=== PATIENT | female | born 1950 | race Caucasian/White ===

== ENCOUNTER 2024-12-21 12:57 | Emergency (ER) | payer OTHER, SELFPAY ==
--- NOTE | ~2024-12-21 | CT_ITS ---
EXAMINATION: CT diagnostic chest wo con DATE: 12/21/2024 16:21 INDICATION: Eval neoplasm vs pna TECHNIQUE: Computed tomography (CT) of the chest was performed without intravenous contrast. Addition al 3D reconstructions utilizing coronal maximum intensity projection (MIP) were performed. Automated exposure control and iterative reconstruction technique were employed. The dose-length product was 13 9.04 mGy-cm. COMPARISON: None FINDINGS: Moderate biapical pleural-parenchymal scarring. There is occlusion of the right middle lobe bronchus where it encounters a 3.6 x 3.0 x 3.1 cm masslike density at the perihilar right middle lobe with col lapse of the more peripheral right middle lobe. There is a cluster of a few satellite nodules at the inferior anterior segment of the right upper lobe along the opposite side the minor fissure from the perihilar mass. There is a 2.5 x 2.1 cm paramediastinal mass at the right apex. There is a 2.4 x 2.1 cm peripheral wedge-shaped part solid nodule with air bronchograms at the lateral left apex. 1.8 x 1. 3 similar part solid nodule at the inferior aspect of the posterior segment of the right upper lobe a butting the major fissure. There are a few additional smaller groundglass nodules in the right upper lobe and 1 in the right lower lobe. No pleural effusion. Heart size is normal. Atherosclerotic see ry artery calcifications. No pericardial effusion. Thoracic aorta is normal in caliber. There are sev eral mildly prominent but still normal-sized mediastinal lymph nodes. No pathologically enlarged thor acic lymphadenopathy. 1 cm cyst in the left hepatic lobe. Visualized upper abdomen is otherwise unrem arkable. Mild thoracic spondylosis. IMPRESSION: 1. 3.6 cm perihilar mass the central right middle lobe which obstructs the right middle lobar bronchi collapse of the more proximal right middle lobe. This concerning for primary bronchogenic carcinoma and would recommend bronchoscopy for further evaluation. 2. Additional 2.5 x 2.1 cm paramediastinal mass in the right upper lobe along some additional scatter ed smaller part solid and some solid nodules in both lungs for which differential would include malig josé miguel or pneumonia. Reviewed, dictated and finalized at location B. ORK ENGINEER IMPRESSION: 1. 3.6 cm perihilar mass the central right middle lobe which obstructs the righ t middle lobar bronchi collapse of the more proximal right middle lobe. This co ncerning for primary bronchogenic carcinoma and would recommend bronchoscopy fo r further evaluation. 2. Additional 2.5 x 2.1 cm paramediastinal mass in the right upper lobe along s ome additional scattered smaller part solid and some solid nodules in both lung s for which differential would include malignancy or pneumonia.
[2024-12-21 13:09] VITALS: BP 131/62; PULSE 78; RESP 20; TEMP 36.4; O2SAT 99
--- OUTSIDE RECORDS SUMMARY | 2024-12-21 13:37 | XMS_ITS | Clinical Summary ---
Author Organization [facility] Address [address] [place] [address]. [place] [address] [place] [address] Care Team Providers Care Pig Handler Name Role Phone Bola Rodriguez Primary Care Provider Allergies No known active allergies Medications No known medications Active Problems Problem Noted Date Diagnosed Date BMI 26.0-26.9,adult 07/19/2020 Colonoscopy refused 10/14/2019 Immunization refused 10/14/2019 Mammogram declined 10/14/2019 Female bladder prolapse 07/13/2016 Post-menopausal 04/06/2016 Resolved Problems Problem Noted Date Diagnosed Date Resolved Date Health maintenance examination 10/14/2019 08/05/2020 Family History Medical History Relation Comments Cancer Brother Cancer Mother Relation Status Comments Brother Mother Social History Tobacco Use Types Packs/Day Years Used Date Smoking Tobacco: Former Smokeless Tobacco: Never PHQ-2 Answer Date Recorded PHQ-2 Score - If the patient scores above 3, please move on to questions 3-9 0 10/15/2022 Comments Unknown Sex and Gender Information Value Date Recorded Sex Assigned at Not on file Legal Sex Female 9:19 PM CDT Gender Identity Not on file Sexual Orientation Not on file Last Filed Vital Signs Vital Sign Reading Time Taken Comments Blood Pressure 124/72 10/15/2022 9:19 AM COMBAT CONTROL MANAGER Pulse 55 10/15/2022 9:19 AM COMBAT CONTROL MANAGER Temperature - - Respiratory Rate - - Oxygen Saturation - - Inhaled Oxygen Concentration - - Weight 62.1 kg (137 lb) 10/15/2022 9:19 AM COMBAT CONTROL MANAGER Height 160 cm (5' 3 ) 10/15/2022 9:19 AM COMBAT CONTROL MANAGER Body Mass Index 24.27 10/15/2022 9:19 AM COMBAT CONTROL MANAGER Plan of Treatment Health Maintenance Due Date Last Done Comments Colorectal Cancer Screening Colonoscopy (10 Years) 1951 PHQ-2 (Physician [place]) 1963 Hepatitis C 1969 DTaP, Tdap and Td Vaccines ( 1 - Tdap) 1970 Mammogram Screening 1991 Zoster Vaccines (1 of 2) 2001 Dexa Scan (General) 2016 Pneumococcal Vaccine: 65+ Ye ars (1 of 1 - PCV) 2016 Annual Medicare Wellness Visit 10/19/2022 10/18/2021 COVID-19 Vaccine (1 - 2023-2 5 season) 2024 Influenza Adult (#1) 2024 PHQ-2 (Physician [place]) 11/25/2024 RSV Immunization or 60+ Years (1 - 1-dose 75+ series) 2026 Meningococcal B Vaccine Aged Out No l onger eligible based on patient's age to complete this topic Meningococcal Vaccine Aged Out No brittney francine eligible based on patient's age to complete this topic RSV Immunizations Under 20 Months Aged Out No longer eligible based on patient's age to complete this topic Insurance [employer] Care Teams Pig Handler Relationship Specialty Start Date End Date Bola Rodriguez DO PCP - General FAMILY PRACTICE 09/08/19
--- OUTSIDE RECORDS SUMMARY | 2024-12-21 13:37 | XMS_ITS | Clinical Summary ---
Author Organization [facility] Address [address] [place] [address] Care Team Providers Care Paste Mixing Supervisor Name Role Phone Sherrie Bacon MD Primary Care Provider Allergies No known active allergies Medications multivitamin,tx- minerals tablet Take by mouth. 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 11/16/2019 Nasal pterygium eye, bilateral 11/16/2019 Assessment & Plan (11/16/2019 10:38 AM CHASSIS DRIVER): Bilateral pterygium with brief tear break-up time (TBUT) with irritations primarily in the nasal corner of each eye Add artificial tears during the day and jaycob hs OU Resolved Problems Problem Noted Date Diagnosed Date Resolved Date Infiltrate of cornea 04/01/2018 024 Viral conjunctivitis, both eyes 03/12/2018 04/09/2024 Assessment & Plan (11/16/2019 10:07 AM CHASSIS DRIVER): Returns for f/u; Hx EKC, SEI both eyes (OU) occurred while on the Radhames 302 trial with 0.6 % Providone Iodine-Dexamethasone Vision stable, but c/o dry eye both eyes (OU) Increase ATs to QID OU and consider FML BID OU RTC 3 mos for IOP check Assessment & Plan (11/13/2018 10:45 AM CHASSIS DRIVER): Returns for f/u; Hx EKC, 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 No evident SEI or conj fibrosis both eyes (OU), reassurance only,but potential recurrence of SEI forewarned. Continue Refresh prn OU. Female bladder prolapse 07/13/201603/25 Surgical History Surgery Date Site/Laterality Comments HYSTERECTOMY for ovarian issues. Still has one ovary TONSILLECTOMY BLADDER SUSPENSION Medical History Medical History Date Comments Bladder prolapse, female, acquired Chickenpox Shingles Family History Medical History Relation Name Comments Prostate cancer Brother COPD Maternal Grandfather Diabetes Maternal Grandmother Arthritis Mother Brain cancer Mother brain tumor. Un sure of type. Breast cancer Neg Hx Colon cancer Neg Hx Ovarian cancer Neg Hx Uterine cancer Neg Hx Relation Name Status Comments Brother Father Maternal Grandfather Maternal Grandmother Mother Social History Tobacco Use Types Packs/Day Years Used Date Smoking Tobacco: Former Cigarettes 0.5 34 1 970 - 2004 Smokeless Tobacco: Never PHQ-2 Answer Date Recorded PHQ-2 Total Score (If total score is 3 or more points, staff should administer the PHQ-9) 0 04/09/2024 Comments Unknown Sex and Gender Information Value Date Recorded Sex Assigned at Not on file Legal Sex Female 2:15 PM CDT Gender Identity Not on file Sexual Orientation Not on file Obstetrics History Last Filed Vital Signs Vital Sign Reading Time Taken Comments Blood Pressure 128/72 04/09/2024 2:03 PM CDT Pulse 82 04/09/2024 2:03 PM CDT Temperature - - Respiratory Rate - - Oxygen Saturation - - Inhaled Oxygen Concentration - - Weight 57.7 kg (127 lb 3.2 oz) 04/09/2024 2:03 P M CDT Height 160 cm (5' 3 ) 04/09/2024 2:03 PM CDT Body Mass Index 22.53 04/09/2024 2:03 PM CDT Plan of Treatment Health Maintenance Due Date Last Done Comments Colon Cancer Screening-Colonoscopy 1951 DTaP/Tdap/Td Vaccine (1 - Tdap) 1962 Influenza Vaccine (#1) 2024 Breast Cancer Screening-Mammogram 01/14/2025 Postponed from 03/15 (Patient declined, but will receive in the future) Depression Screening 04/09/2025 04/09/2024 Fall Risk Assessment 04/09/2025 04/09/2024 Osteoporosis Screening-Bone Density Scan 04/09/2025 Postponed from 03/15 (Patient declined, but will receive in the future) Pneumococcal vaccine 65+ (1 of 1 - PCV) 04/09/2025 Postponed from 03/15 (Patient declined, but will receive in the future) Well Visit 65+ 04/09/2025 04/09/2024 Zoster Vaccine (1 of 2) 04/09/2025 Post poned from 2001 (Patient declined, but will receive in the future) Hepatitis C Screening Completed 05/18/2024 Hepatitis B Screening Discontinued Procedures Procedure Name Priority Date/Time Associated Diagnosis Comments HEPATITIS C ANTIBODY Routine 05/18/2024 8:07 AM CDT Encounter for hepatitis C screening test for low risk patient Laboratory examination ordered as part of a complete physical examination from Last 3 Months or Most Recently Relevant to Health Maintenance Results * Hepatitis C antibody Blood (05/18/2024 8:07 AM CDT) Hep C Ab Nonreactive Nonreactive Comment: Interpretive Data Nonreactive: Antibodies to HCV not detected. Does NOT exclude the possibility of recent exposure to HCV. Equivocal: Equivocal for HCV antibodies. Supplemental molecular testing will be automatically performed to determine infection status in accordance with current CDC screening recommendations. ?? Reactive: Positive for HCV antibodies. ??This may represent current or past HCV infection. Supplemental molecular testing will be automatically performed to determine ??current infection status in accordance with current CDC screening recommendations. Interpretive data was last revised on 2020. Blood 05/18/2024 8:07 AM CDT 05/18/2024 3:05 PM CDT Sherrie Bacon MD LAB MICROBIOLOGY - GEN ERAL ORDERABLES Final Result Performing Organization Address City/State/[place] [address] [facility] Department [place] [address] from Last 3 Months or Most Recently Relevant to Health Maintenance Insurance [facility] Member Subscriber Plan / Payer ( fective 2016-Present) Name:UZMA CHAVARRIA Relation to Subscriber:Self Name:Uzma Chavarria Payer ID:[id number] (NAIC) Type:MEDICARE RISK OTHER Address: [address] [place] [id number] Care Teams Paste Mixing Supervisor Relationship Specialty Start Date End Date Sherrie Bacon MD PCP - General Family Medicine 04/09/24
--- OUTSIDE RECORDS SUMMARY | 2024-12-21 13:37 | XMS_ITS | Referral Summary ---
Author Organization [facility] Address [address] [place] [address] Care Team Providers Care Can Handler Name Role Phone Sherrie Bacon MD Primary [...] 11/16/2019 Assessment & Plan (11/16/2019 10:38 AM CONSTRUCTION ECONOMIST): Bilateral pterygium with brief tear break-up time (TBUT) with irritations primarily in the nasal corner of each eye Add artificial tears during the day and jaycob hs OU Resolved Problems Problem Noted Date Diagnosed Date Resolved Date Infiltrate of cornea 04/01/2018 024 Viral conjunctivitis, both eyes 03/12/2018 04/09/2024 Assessment & Plan (11/16/2019 10:07 AM CONSTRUCTION ECONOMIST): Returns for f/u; Hx EKC, SEI both eyes (OU) occurred while on the Radhames 302 trial with 0.6 % Providone Iodine-Dexamethasone Vision stable, but c/o dry eye both eyes (OU) Increase ATs to QID OU and consider FML BID OU RTC 3 mos for IOP check Assessment & Plan (11/13/2018 10:45 AM CONSTRUCTION ECONOMIST): Returns for f/u; Hx EKC, SEI both [...] Refresh prn OU. Female bladder prolapse 07/13/201603/25 Social History Tobacco Use Types Packs/Day Years Used Date Smoking Tobacco: Former Cigarettes 0.5 34 1 0 - 2003 Smokeless Tobacco: Never PHQ-2 Answer Date Recorded [...] 04/09/2024 2:03 PM CDT Plan of Treatment Not on file Procedures Procedure Name Priority Date/Time Associated Diagnosis [...] MICROBIOLOGY - [place] [id number] [address] Department [place] [address] from Last 3 Months or Most Recently Relevant to Health Maintenance Insurance [employer] Care Teams Can Handler Relationship Specialty Start Date End Date Sherrie Bacon MD PCP - General Family Medicine 04/09/24
--- NOTE | 2024-12-21 14:42 | ED.SOB ---
HPI - SOB/Dyspnea General Chief Complaint: Recheck/Abnormal Lab/Rx <Madison Parisi APRN - Last Filed: 12/21/24 14:45> Stated Complaint: sent by Dr. Francis for possible lung mass <Madison Parisi APRN - Last Filed: 12/21/24 14:45> Time Seen by Provider: 12/21/24 14:30 <Madison Parisi APRN - Last Filed: 12/21/24 14:45> Focused HPI: Patient is a 74-year-old female who presents to the ER with the lingering cough x1 month. She reports she went to urgent care earlier today who advised her to come to the ER for a CT scan. Patient was told she had on the pneumonia, they also had concerns for other suspicious spots on her chest x-ray. She denies any wheezing, recent fevers, or productive coughs. Patient denies any recent sick contacts. She also denies any relevant medical history related to this ER visit. Patient denies chest pain, back pain, abdominal pain. GENERAL: Well-appearing, well-nourished, and in no acute distress. HEAD: Normocephalic, atraumatic. CHEST: Clear to auscultation. ?No respiratory distress. HEART: Regular rate and rhythm.? NEURO: ?Alert and oriented x3. Patient screened in triage and initial orders placed.? ?Additional care and disposition to be based upon?diagnostic testing and treatment. <Madison Parisi APRN - Last Filed: 12/21/24 14:45> Related Data Allergies/Adverse Reactions: Allergies Allergy/AdvReac Type Severity Reaction Status Date / Time No Known Allergies Allergy Verified 12/21/24 14:56 <Madison Parisi APRN - Last Filed: 12/21/24 14:45> Exam Narrative: APPEARANCE: No apparent distress. Head: atraumatic. EYES: EOMI, NOSE: Atraumatic NECK: Trachea midline RESPIRATORY: No increased rate of breathing, CTAB CARDIOVASCULAR: RRR, ABDOMINAL: Non-distended MUSCULOSKELETAl: No obvious deformities NEURO: Alert. Moving 4/4 extremities SKIN:: Warm, dry. Normal color PSYCHIATRIC: Normal affect <Sanjay Alejo MD - Last Filed: 12/21/24 16:58> Course Vital Signs Vital signs: Vital Signs Temperature 97.6 F 12/21/24 13:09 Pulse Rate 78 12/21/24 13:09 Respiratory Rate 20 12/21/24 13:09 Blood Pressure 131/62 12/21/24 13:09 Pulse Oximetry 99 12/21/24 13:09 Oxygen Delivery Room Air 12/21/24 13:09 Temperature 97.6 F 12/21/24 13:09 Pulse Rate 80 12/21/24 15:45 Respiratory Rate 16 12/21/24 15:45 Blood Pressure 121/63 12/21/24 15:45 Pulse Oximetry 95 12/21/24 15:45 Oxygen Delivery Room Air 12/21/24 13:09 <Madison Parisi, MYSQL DATABASE ADMINISTRATOR - Last Filed: 12/21/24 14:45> Vital Signs Temperature 97.6 F 12/21/24 13:09 Pulse Rate 78 12/21/24 13:09 Respiratory Rate 20 12/21/24 13:09 Blood Pressure 131/62 12/21/24 13:09 Pulse Oximetry 99 12/21/24 13:09 Oxygen Delivery Room Air 12/21/24 13:09 Temperature 97.6 F 12/21/24 13:09 Pulse Rate 80 12/21/24 15:45 Respiratory Rate 16 12/21/24 15:45 Blood Pressure 121/63 12/21/24 15:45 Pulse Oximetry 95 12/21/24 15:45 Oxygen Delivery Room Air 12/21/24 13:09 <Sanjay Alejo MD - Last Filed: 12/21/24 16:58> MDM - SOB/Dyspnea MDM Narrative Medical decision making narrative: -Course: 74-year-old female presenting for CT scan due to a suspicious mass on x-ray. CT has findings concerning for bronchogenic carcinoma. Patient is otherwise asymptomatic. She will follow up outpatient with Dr. Pritchett. <Sanjay Alejo MD - Last Filed: 12/21/24 16:58> Lab Data Result diagrams: 12/21/24 16:05 12/21/24 16:05 <Madison Parisi, MYSQL DATABASE ADMINISTRATOR - Last Filed: 12/21/24 14:45> Labs: Lab Results 12/21/24 Range/Units 16:05 WBC 8.9 (4.5-10.0) K/mm3 RBC 4.40 (4.2-5.4) M/mm3 Hgb 14.2 (12.0-15.0) g/dL Hct 42.0 (37.0-47.0) % MCV 95.5 (80-100) fl MCH 32.3 (26-34) pg MCHC 33.8 (32-36) g/dl RDW 12.1 (11.5-14.5) % Plt Count 273 (150-375) k/mm3 MPV 10.1 (7.4-10.4) fl Immature Gran % (Auto) 0.2 (0-0.5) % Neut % (Auto) 68.9 (45.5-73.1) % Lymph % (Auto) 15.9 L (18.3-44.2) % Hill % (Auto) 9.6 H (2.6-8.5) % Eos % (Auto) 4.5 H (0-4.4) % Baso % (Auto) 0.9 (0.2-1.2) % Lymph # (Auto) 1.41 (0.9-3.2) K/mm3 Hill # (Auto) 0.9 H (0.1-0.6) K/mm3 Eos # (Auto) 0.4 H (0-0.3) K/mm3 Baso # (Auto) 0.1 (0.0-0.1) K/mm3 Abs Immat Gran (auto) 0.02 (0.00-0.031) K/mm3 Absolute Neuts (auto) 6.1 (1.3-6.7) K/mm3 Absolute Nucleated RBC 0.000 (0.0-0.012) K/mm3 Nucleated RBC % 0.0 (0.0-0.2) % Sodium 137 (137-145) mmol/L Potassium 4.1 (3.4-5.0) mmol/L Chloride 102 (98-107) mmol/L Carbon Dioxide 25 (22-30) mmol/L Anion Gap 10 (4-12) mmol/L BUN 8 (7-17) mg/dL Creatinine 0.65 L (0.7-1.0) mg/dL Estim Creat Clear Calc 50 ml/min Estimated GFR > 60 (59 - ) Glucose 91 (65-110) mg/dL Calcium 9.1 (8.4-10.2) mg/dL Total Bilirubin 0.4 (0.2-1.3) mg/dL AST 30 (14-36) U/L ALT 14 (6-35) U/L Alkaline Phosphatase 90 (38-126) U/L Total Protein 7.0 (6.3-8.2) g/dL Albumin 4.2 (3.5-5.1) g/dL Influenza A (RT-PCR) Negative (Negative) Influenza B (RT-PCR) Negative (Negative) RSV (RT-PCR) Negative (Negative) SARS-CoV-2 RNA (RT-PCR) Negative (Negative) <Madison Parisi, MYSQL DATABASE ADMINISTRATOR - Last Filed: 12/21/24 14:45> Lab Results 12/21/24 Range/Units 16:05 WBC 8.9 (4.5-10.0) K/mm3 RBC 4.40 (4.2-5.4) M/mm3 Hgb 14.2 (12.0-15.0) g/dL Hct 42.0 (37.0-47.0) % MCV 95.5 (80-100) fl MCH 32.3 (26-34) pg MCHC 33.8 (32-36) g/dl RDW 12.1 (11.5-14.5) % Plt Count 273 (150-375) k/mm3 MPV 10.1 (7.4-10.4) fl Immature Gran % (Auto) 0.2 (0-0.5) % Neut % (Auto) 68.9 (45.5-73.1) % Lymph % (Auto) 15.9 L (18.3-44.2) % Hill % (Auto) 9.6 H (2.6-8.5) % Eos % (Auto) 4.5 H (0-4.4) % Baso % (Auto) 0.9 (0.2-1.2) % Lymph # (Auto) 1.41 (0.9-3.2) K/mm3 Hill # (Auto) 0.9 H (0.1-0.6) K/mm3 Eos # (Auto) 0.4 H (0-0.3) K/mm3 Baso # (Auto) 0.1 (0.0-0.1) K/mm3 Abs Immat Gran (auto) 0.02 (0.00-0.031) K/mm3 Absolute Neuts (auto) 6.1 (1.3-6.7) K/mm3 Absolute Nucleated RBC 0.000 (0.0-0.012) K/mm3 Nucleated RBC % 0.0 (0.0-0.2) % Sodium 137 (137-145) mmol/L Potassium 4.1 (3.4-5.0) mmol/L Chloride 102 (98-107) mmol/L Carbon Dioxide 25 (22-30) mmol/L Anion Gap 10 (4-12) mmol/L BUN 8 (7-17) mg/dL Creatinine 0.65 L (0.7-1.0) mg/dL Estim Creat Clear Calc 50 ml/min Estimated GFR > 60 (59 - ) Glucose 91 (65-110) mg/dL Calcium 9.1 (8.4-10.2) mg/dL Total Bilirubin 0.4 (0.2-1.3) mg/dL AST 30 (14-36) U/L ALT 14 (6-35) U/L Alkaline Phosphatase 90 (38-126) U/L Total Protein 7.0 (6.3-8.2) g/dL Albumin 4.2 (3.5-5.1) g/dL Influenza A (RT-PCR) Negative (Negative) Influenza B (RT-PCR) Negative (Negative) RSV (RT-PCR) Negative (Negative) SARS-CoV-2 RNA (RT-PCR) Negative (Negative) <Sanjay Alejo MD - Last Filed: 12/21/24 16:58> Discharge Plan Discharge Clinical Impression: BC (bronchogenic carcinoma) <Madison Parisi APRN - Last Filed: 12/21/24 14:45> Patient Disposition: Home, Self-Care <Madison Parisi APRN - Last Filed: 12/21/24 14:45> Condition: Stable <Madison Parisi APRN - Last Filed: 12/21/24 14:45> Instructions: Antibiotic Form, Lung Cancer (DC) <Madison Parisi APRN - Last Filed: 12/21/24 14:45> Additional Instructions: You were seen in the emergency department for a cough. Her CT has findings concerning for bronchogenic carcinoma. Please call Dr. Pritchett's clinic tomorrow morning to arrange outpatient follow-up for further treatment and evaluation. Return to ED if you develop chest pain difficulty breathing fevers or feel your condition is getting worse. <Madison Parisi APRN - Last Filed: 12/21/24 14:45> Patient Language: Honduran <Madison Parisi APRN - Last Filed: 12/21/24 14:45> Prescriptions: No Action doxycycline hyclate 100 mg capsule 100 mg PO BID 7 Days Qty: 14 0RF benzonatate 200 mg capsule 200 mg PO TID PRN (Reason: cough) Qty: 20 0RF <Madison Parisi APRN - Last Filed: 12/21/24 14:45> Follow-up/Referrals: Bobby Pritchett MD [Physician] - 2 Days (Lung Cancer) UNKNOWN,DOCTOR [Non-Staff] - <Madison Parisi APRN - Last Filed: 12/21/24 14:45>
[2024-12-21 14:53] VITALS: RESP 14; O2SAT 100
[2024-12-21 14:54] VITALS: BP 114/83; PULSE 67; RESP 16; O2SAT 100
[2024-12-21 14:56] VITALS: BP 114/83; PULSE 65; RESP 14; O2SAT 100
[2024-12-21 15:45] VITALS: BP 121/63; PULSE 80; RESP 16; O2SAT 95
[2024-12-21 16:13] LABS: Basophils Absolute Auto 0.1 K/mm3 (0.0-0.1); Basophils Percent Auto 0.9 % (0.2-1.2); Eosinophils Absolute Auto 0.4 K/mm3 (0-0.3); Eosinophils Percent Auto 4.5 % (0-4.4); Hemoglobin 14.2 g/dL (12.0-15.0); Immature Granulocyte Absolute 0.02 K/mm3 (0.00-0.031); Immature Granulocyte Percent A 0.2 % (0-0.5); Lymphocytes Absolute Auto 1.41 K/mm3 (0.9-3.2); Lymphocytes Percent Auto 15.9 % (18.3-44.2); Mean Corpuscular HGB Conc 33.8 g/dl (32-36); Mean Corpuscular Hemoglobin 32.3 pg (26-34); Mean Corpuscular Volume 95.5 fl (80-100); Mean Platelet Volume 10.1 fl (7.4-10.4); Monocytes Absolute Auto 0.9 K/mm3 (0.1-0.6); Monocytes Percent Auto 9.6 % (2.6-8.5); Neutrophils Absolute Auto 6.1 K/mm3 (1.3-6.7); Neutrophils Percent Auto 68.9 % (45.5-73.1); Platelet Count Result 273 k/mm3 (150-375); Red Cell Distribution Width 12.1 % (11.5-14.5); White Blood Count 8.9 K/mm3 (4.5-10.0)
[2024-12-21 16:23] LABS: Alanine Aminotransferase 14 U/L (6-35); Albumin Level 4.2 g/dL (3.5-5.1); Alkaline Phosphatase 90 U/L (38-126); Anion Gap 10 mmol/L (4-12); Aspartate Amino Transferase 30 U/L (14-36); Bilirubin,Total 0.4 mg/dL (0.2-1.3); Blood Urea Nitrogen 8 mg/dL (7-17); Calcium 9.1 mg/dL (8.4-10.2); Carbon Dioxide 25 mmol/L (22-30); Chloride 102 mmol/L (98-107); Estimated CRCL calculation 50 ml/min; Estimated Glomerular Filt Rate > 60; Glucose 91 mg/dL (65-110); Potassium 4.1 mmol/L (3.4-5.0); Sodium 137 mmol/L (137-145)
[2024-12-21 16:31] VITALS: BP 121/59; PULSE 72; RESP 15; O2SAT 97
--- OUTSIDE RECORDS SUMMARY | 2024-12-21 16:39 | XMS_ITS | Clinical Summary ---
Author Organization [facility] Address [address] [place] [address] Care Team Providers Care Credit Or Loans Officer Name Role Phone Sherrie Bacon MD Primary [...] 11/16/2019 Assessment & Plan (11/16/2019 10:38 AM LEGAL NURSE CONSULTANT): Bilateral pterygium with brief tear break-up time (TBUT) with irritations primarily in the nasal corner of each eye Add artificial tears during the day and jaycob hs OU Resolved Problems Problem Noted Date Diagnosed Date Resolved Date Infiltrate of cornea 04/01/2018 024 Viral conjunctivitis, both eyes 03/12/2018 04/09/2024 Assessment & Plan (11/16/2019 10:07 AM LEGAL NURSE CONSULTANT): Returns for f/u; Hx EKC, SEI both eyes (OU) occurred while on the Radhames 302 trial with 0.6 % Providone Iodine-Dexamethasone Vision stable, but c/o dry eye both eyes (OU) Increase ATs to QID OU and consider FML BID OU RTC 3 mos for IOP check Assessment & Plan (11/13/2018 10:45 AM LEGAL NURSE CONSULTANT): Returns for f/u; Hx EKC, SEI both [...] Final Result Performing Organization Address City/State/[place] [address] [facility] Department [place] [address] from Last 3 Months or Most Recently Relevant to Health Maintenance Insurance [facility] Member Subscriber Plan / Payer ( fective 2016-Present) Name:UZMA CHAVARRIA Relation to Subscriber:Self Name:Uzma Chavarria Payer ID:[id number] (NAIC) Type:MEDICARE RISK OTHER Address: [address] [place] [id number] Care Teams Credit Or Loans Officer Relationship Specialty Start Date End Date Sherrie Bacon MD PCP - General Family Medicine 04/09/24
--- OUTSIDE RECORDS SUMMARY | 2024-12-21 16:39 | XMS_ITS | Clinical Summary ---
Author Organization [facility] Address [address] [place] [address]. [place] [address] [place] [address] Care Team Providers Care Weight And Balance Control Agent Name Role Phone Bola Rodriguez Primary Care [...] Comments Blood Pressure 124/72 10/15/2022 9:19 AM CELLULAR BIOLOGIST Pulse 55 10/15/2022 9:19 AM CELLULAR BIOLOGIST Temperature - - Respiratory Rate - - Oxygen Saturation - - Inhaled Oxygen Concentration - - Weight 62.1 kg (137 lb) 10/15/2022 9:19 AM CELLULAR BIOLOGIST Height 160 cm (5' 3 ) 10/15/2022 9:19 AM CELLULAR BIOLOGIST Body Mass Index 24.27 10/15/2022 9:19 AM CELLULAR BIOLOGIST Plan of Treatment Health Maintenance Due Date Last Done Comments Colorectal Cancer Screening Colonoscopy (10 Years) 1951 PHQ-2 (Physician [place]) 1963 Hepatitis C 1969 DTaP, Tdap and Td Vaccines ( 1 - Tdap) 1970 Mammogram Screening 1991 Zoster Vaccines (1 of 2) 2001 Dexa Scan (General) 2016 Pneumococcal Vaccine: 65+ Ye ars (1 of 1 - PCV) 2016 Annual Medicare Wellness Visit 10/19/2022 10/18/2021 COVID-19 Vaccine (1 - 2023-2 5 season) 2024 Influenza Adult (#1) 2024 PHQ-2 (Physician [place]) 11/25/2024 RSV Immunization or 60+ Years (1 [...] patient's age to complete this topic Insurance [employer] Care Teams Weight And Balance Control Agent Relationship Specialty Start Date End Date Bola Rodriguez DO PCP - General FAMILY PRACTICE 09/08/19
--- OUTSIDE RECORDS SUMMARY | 2024-12-21 16:39 | XMS_ITS | Referral Summary ---
Author Organization [facility] Address [address] [place] [address] Care Team Providers Care Coach Cleaner Name Role Phone Sherrie Bacon MD Primary [...] 11/16/2019 Assessment & Plan (11/16/2019 10:38 AM ICE CREAM SERVER): Bilateral pterygium with brief tear break-up time (TBUT) with irritations primarily in the nasal corner of each eye Add artificial tears during the day and jaycob hs OU Resolved Problems Problem Noted Date Diagnosed Date Resolved Date Infiltrate of cornea 04/01/2018 024 Viral conjunctivitis, both eyes 03/12/2018 04/09/2024 Assessment & Plan (11/16/2019 10:07 AM ICE CREAM SERVER): Returns for f/u; Hx EKC, SEI both eyes (OU) occurred while on the Radhames 302 trial with 0.6 % Providone Iodine-Dexamethasone Vision stable, but c/o dry eye both eyes (OU) Increase ATs to QID OU and consider FML BID OU RTC 3 mos for IOP check Assessment & Plan (11/13/2018 10:45 AM ICE CREAM SERVER): Returns for f/u; Hx EKC, SEI both [...] GEN [place] [id number] [address] Department [place] [address] from Last 3 Months or Most Recently Relevant to Health Maintenance Insurance [facility] Care Teams Coach Cleaner Relationship Specialty Start Date End Date Sherrie Bacon MD PCP - General Family Medicine 04/09/24
[2024-12-21 16:47] LABS: Influenza A QL RT-PCR Negative (Negative); Influenza B QL RT-PCR Negative (Negative); RSV RNA, RT-PCR Negative (Negative); SARS-CoV-2 RNA PCR Negative (Negative)
== END 2024-12-21 17:04 | disposition home or self-care (01) ==
PROVIDERS: Emergency Provider Emergency Medicine; PCP Family Medicine
DX: C34.91 Malignant neoplasm of unspecified part of right bronchus or lung (principal); Z20.822 Contact with and (suspected) exposure to COVID-19
CPT/HCPCS: 36415; 71250; 80053; 85025; 87637; 99284

== ENCOUNTER 2025-01-21 10:45 | Outpatient (CLI) | payer OTHER, SELFPAY ==
[2025-01-21 11:08] LABS: Glucose Point of Care 79 mg/dl (65-105)
== END 2025-01-21 10:46 | disposition home or self-care (01) ==
PROVIDERS: PCP Family Medicine; Visit Provider Internal Medicine Hematology & Oncology
DX: C34.2 Malignant neoplasm of middle lobe, bronchus or lung (principal); N83.292 Other ovarian cyst, left side
CPT/HCPCS: 78815; A9552

== ENCOUNTER 2025-07-24 07:50 | Outpatient (CLI) | payer OTHER, SELFPAY ==
--- NOTE | ~2025-07-24 | XR_ITS ---
EXAM/ PROCEDURE: XR shoulder RT min 2V - 07/24/2025 8:06 CDT HISTORY: 75 years old Female with M25.511 - Pain in right shoulder X 1 WK, NO KNOWN INJURY COMPARISON: None available TECHNIQUE: Four view(s) FINDINGS/ IMPRESSION: There are no fractures or dislocations.Joint space narrowing, subchondral sclerosis, subchondral cyst formation and osteophyte formation, compatible with mild osteoarthritis. Tip of the Mediport catheter is at the cavoatrial junction. Right mid field consolidation. Reviewed, dictated and finalized at location N.
== END 2025-07-24 07:51 | disposition home or self-care (01) ==
PROVIDERS: PCP Family Medicine; Visit Provider Nurse Practitioner Family
DX: M25.511 Pain in right shoulder (principal); Z95.828 Presence of other vascular implants and grafts
CPT/HCPCS: 73030

== ENCOUNTER 2025-08-05 09:26 | Outpatient (CLI) | payer OTHER, SELFPAY ==
--- OUTSIDE RECORDS SUMMARY | 2025-08-05 10:09 | XMS_ITS | Encounter Summary ---
Author Organization [facility] Address [address] [place] [address] Care Team Providers Care Tower Excavator Operator Name Role Phone Bon Gonzalez MD Primary Care Provider [phone] Encounter Details Date Type Department Care Team (Late Contact Info) Description 08/05/2025 External Device Data ST[place] ABSTRACTION Provider, Abstract NO ADDRESS ON FILE Social History Tobacco Use Types Packs/Day Years Used Date Smoking Tobacco: Former Cigarettes Q uit: 1967 Smokeless Tobacco: Never Alcohol Use Standard Drinks/Week Comments Yes 0 (1 standard drink = 0.6 oz pur e alcohol) Occasionally Feeling Safe Answer Date Recorded Are you in a relationship wi th someone who hurts you emotionally and/or physically? 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 Gender Identity Not on file Sexual Orientation Not on file documented as of this encounter Plan of Treatment Upcoming Encounters Date Type Department Care Team (Late st Contact Info) Description 08/16/2025 9:30 AM CDT Office Visit [facility] Oncology and Hematology [facility] [address] [place] [address] Priya Simpson V., DO [address] [place] [address] 08/16/2025 10:30 AM CDT Appointment Chad [facility] 3rd Fl [address] [place] [address] Priya Simpson V., DO [address] [place] [address] 11/09/2025 8:40 AM GOLF TEACHER Appointment [facility] [address] [place] [address] Pee Matthews MD [address] [facility] [address] [place] [address] documented as of this encounter Visit Diagnoses Not on filedocumented in this encounter Care Teams Tower Excavator Operator Relationship Specialty Start Date End Date Bon Gonzalez MD [address] [place] [phone] PCP - General Family Practice 01/29/25 documented as of this encounter
--- OUTSIDE RECORDS SUMMARY | 2025-08-05 10:09 | XMS_ITS | Clinical Summary ---
Author Organization [facility] Address [address] [place] [address] Care Team Providers Care Director Software Name Role Phone Bobby Pritchett MD Unavailable [phone] Sherrie Bacon MD Primary Care Provider Allergies [...] 11/16/2019 Assessment & Plan (11/16/2019 10:38 AM BEATER AND PULPER FEEDER): Bilateral pterygium with brief tear break-up time (TBUT) with irritations primarily in the nasal corner of each eye Add artificial tears during the day and jaycob hs OU Resolved Problems Problem Noted Date Diagnosed Date Resolved Date Infiltrate of cornea 04/01/2018 024 Viral conjunctivitis, both eyes 03/12/2018 04/09/2024 Assessment & Plan (11/16/2019 10:07 AM BEATER AND PULPER FEEDER): Returns for f/u; Hx EKC, SEI both eyes (OU) occurred while on the Radhames 302 trial with 0.6 % Providone Iodine-Dexamethasone Vision stable, but c/o dry eye both eyes (OU) Increase ATs to QID OU and consider FML BID OU RTC 3 mos for IOP check Assessment & Plan (11/13/2018 10:45 AM BEATER AND PULPER FEEDER): Returns for f/u; Hx EKC, SEI both [...] P M CDT Height 160 cm (5' 3) 04/09/2024 2:03 PM CDT Body Mass Index 22.53 04/09/2024 2:03 PM CDT Plan of Treatment Health Maintenance Due Date Last Done Comments Breast Cancer Screening-Mammogram 1950 Colon Cancer Screening-Colonoscopy 1950 Osteoporosis Screening-Bone Density Scan 1950 DTaP/Tdap/Td Vaccine (1 - Tdap) 1962 Pneumococcal vaccine 65+ (1 of 1 - PCV) 2001 Zoster Vaccine (1 of 2) 2001 Depression Screening 04/09/2025 04/09/2024 Fall Risk Assessment 04/09/2025 04/09/2024 Well Visit 65+ 04/09/2025 04/09/2024 Influenza Vaccine (#1) 2025 Hepatitis C Screening Completed 05/18/2024 Hepatitis B [...] in accordance with current CDC screening recommendations. Reactive: Positive for HCV antibodies. This may represent current or past HCV infection. Supplemental molecular testing will be automatically performed to determine current infection status in accordance with current CDC screening recommendations. Interpretive data was last revised on 2020. Blood 05/18/2024 8:07 AM CDT 05/18/2024 3:05 PM CDT Sherrie Bacon MD LAB MICROBIOLOGY - GEN ERAL ORDERABLES Final Result [facility] [id number] [address] Department [place] [address] from Last 3 Months or Most Recently Relevant to Health Maintenance Insurance Care Teams Director Software Relationship Specialty Start Date End Date Sherrie Bacon MD [address] [place] [address] PCP - General Family Medicine 01/28/25 Bobby Pritchett MD [address] [place] [address] Referring Physician Hematology 01/28/25
--- OUTSIDE RECORDS SUMMARY | 2025-08-05 10:09 | XMS_ITS | Encounter Summary ---
Author Organization [facility] Address 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 Gender Identity Not on file Sexual Orientation Not on file documented as of this encounter Plan of Treatment Upcoming Encounters Date Type Department Care Team (Late st Contact Info) Description 08/16/2025 9:30 AM CDT Office Visit [facility] Oncology and Hematology [facility] [address] [place] [address] Priya Simpson V., DO [address] [place] [address] 08/16/2025 10:30 AM CDT Appointment Chad [facility] 3rd Fl [address] [place] [address] Priya Simpson V., DO [address] [place] [address] 11/09/2025 8:40 AM TEACHER PRESCHOOL Appointment [facility] [address] [place] [address] Pee Matthews MD [address] [facility] [address] [place] [address] documented as of this encounter Visit Diagnoses Not on filedocumented in this encounter Care Teams Hammersmith Helper Relationship Specialty Start Date End Date Bon Gonzalez MD [address] [place] [phone] PCP - General Family Practice 01/29/25 documented as of this encounter
--- OUTSIDE RECORDS SUMMARY | 2025-08-05 10:09 | XMS_ITS ---
Author Organization [facility] Address [address] [address] Care Team Providers Care Telecommunications Engineer Name Role Phone Bon Gonzalez MD Primary Care Provider [phone] Active Problems Problem Noted Date Diagnosed Date Malignant neoplasm of middle lobe of right lung 03/11/2025 Lung mass 02/03/2025 Current Treatment and Therapy Plans OP ONC LUNG (NSCLC)_DURVALUMAB_EVERY 28 DAYS* Plan Start Date:05/19/2025 Plan Provider:Priya Simpson DO Linked Problems Malignant neoplasm of middle lobe of right lung (CMS/HCC) Treatment Medications Current Day (Day 1 , Cycle 4 - Planned for 08/16/2025) Next Day (Day 1, Cycle 5 - Planned for 09/13/2025) durvalumab (IMFINZI) IVPB durvalumab (IM FINZI) 1,500 mg in sodium chloride 0.9 % 250 mL IVPB durvalumab (IMFINZI) 1,500 mg in sodium chloride 0.9 % 250 mL IVPB Past Treatment and Therapy Plans ONCOLOGY TREATMENT Plan Name Start Date Discontinue Date Treatment Medications Discontinue Reason Plan Provider Cycles OP ONC LUNG (NSCLC)_PACLI TAXEL_CARBOPL ATIN_EVERY 7 DAYS X 7 WITH CONCURRENT RADIATION 5 04/26/2025 CARBOplatin (PARAPLATIN) IVPBPACLitaxel (TAXOL) IVPB Other Priya Simpson DO 6 of 7 cycles started Lifetime Dose Tracking * Chemical Lifetime Dose Automatic Entry Manual Entr y Effective Dose 13.42 mSv 13.42 mSv 0 mSv Total DLP 517.83 DLP 517.83 DLP 0 DLP CTDIvol Max 14.45 mGy 14.45 mGy 0 mGy CTDIvol Min 14.45 mGy 14.45 mGy 0 mGy
--- OUTSIDE RECORDS SUMMARY | 2025-08-05 10:09 | XMS_ITS | Encounter Summary ---
Author Organization [facility] Address [address] [place] [address] Care Team Providers Care Pillowcase Maker Name Role Phone Bon Gonzalez MD Primary Care Provider [phone] Encounter Details Date Type Department Care Team [...] on file Legal Sex Female 1:58 PM UNLOADING CHECKER Gender Identity Not on file Sexual Orientation Not on file documented as of this encounter Plan of Treatment Upcoming Encounters Date Type Department Care Team (Late st Contact Info) Description 08/16/2025 9:30 AM CDT Office Visit [facility] Oncology and Hematology [facility] [address] [place] [address] Priya Simpson V., DO [address] [place] [address] 08/16/2025 10:30 AM CDT Appointment Chad Swann [facility] 3rd Fl [address] [place] [address] Priya Simpson V., DO [address] [place] [address] 11/09/2025 8:40 AM UNLOADING CHECKER Appointment [facility] Radiation Therapy [address] [place] [address] Pee Matthews MD [address] [facility] [address] [place] [address] documented as of this encounter Visit Diagnoses Not on filedocumented in this encounter Care Teams Pillowcase Maker Relationship Specialty Start Date End Date Bon Gonzalez MD [address] [place] [phone] PCP - General Family Practice 01/29/25 documented as of this encounter
--- OUTSIDE RECORDS SUMMARY | 2025-08-05 10:09 | XMS_ITS | Encounter Summary ---
Author Organization [facility] Address [address] [place] [address] Care Team Providers Care Construction Economist Name Role Phone Bon Gonzalez MD Primary Care Provider [phone] Encounter Details Date Type Department Care Team [...] on file Legal Sex Female 1:58 PM HUMAN RESOURCES DISTRICT MANAGER Gender Identity Not on file Sexual Orientation Not on file documented as of this encounter Plan of Treatment Upcoming Encounters Date Type Department Care Team (Late st Contact Info) Description 08/16/2025 9:30 AM CDT Office Visit [facility] Oncology and Hematology [facility] [address] [place] [address] Priya Simpson V., DO [address] [place] [address] 08/16/2025 10:30 AM CDT Appointment Chad Swann [facility] 3rd Fl [address] [place] [address] Priya Simpson V., DO [address] [place] [address] 11/09/2025 8:40 AM HUMAN RESOURCES DISTRICT MANAGER Appointment [facility] Rad[facility] Therapy [address] [place] [address] Pee Matthews MD [address] [facility] [address] [place] [address] documented as of this encounter Visit Diagnoses Not on filedocumented in this encounter Care Teams Construction Economist Relationship Specialty Start Date End Date Bon Gonzalez MD [address] [place] [phone] PCP - General Family Practice 01/29/25 documented as of this encounter
--- OUTSIDE RECORDS SUMMARY | 2025-08-05 10:09 | XMS_ITS | Clinical Summary ---
Author Organization [facility] Address [address] [place] [address] Care Team Providers Care Psych Coordinator Name Role Phone Bon Gonzalez MD Primary Care Provider [phone] Allergies No known active allergies Medications fluticasone propionate (FLONASE) 50 mcg/spray Hope, Suspension nasal inhaler Administer 1 Hope in each nostril every 12 hours. 5 Active multivitamin-m inerals (THERADEX-M) tablet Take 1 Tablet by mouth daily. Active prochlorperazi ne maleate (COMPAZINE) 10 mg tablet Take 1 Tablet (10 mg) by mouth every 6 hours as needed for Nausea/Emesis. 30 Tablet 6 5 Active famotidine (PEPCID) 20 mg tablet Take 1 Tablet (20 mg) by mouth 2 times daily. 60 Tablet 2 5 Active ondansetron (ZOFRAN) 8 mg Tablet Take 1 Tablet (8 mg) by mouth every 8 hours as needed for Nausea/Emesis. 30 Tablet 11 5 Active lidocaine-pril ocaine (EMLA) 2.5-2.5 % Cream Apply to affected area see administration instructions. 5 Gram 2 5 Active cyclobenzaprin e (FLEXERIL) 5 mg Tablet Take 1 Tablet (5 mg) by mouth 3 times daily as needed for Spasm. 20 Tablet 5 Active Active Problems Problem Noted Date Diagnosed Date Malignant neoplasm of middle lobe of right lung 03/11/2025 Lung mass 02/03/2025 Encounters Date Type Department Care Team Description 08/05/2025 External Device Data STL ABSTRACTION Provider, Abstract 08/05/2025 External Device Data STL ABSTRACTION Provider, Abstract 08/04/2025 External Device Data STL ABSTRACTION Provider, Abstract 08/04/2025 External Device Data STL ABSTRACTION Provider, Abstract 08/03/2025 External Device Data STL ABSTRACTION Provider, Abstract 08/03/2025 External Device Data STL ABSTRACTION Provider, Abstract 08/02/2025 External Device Data STL ABSTRACTION Provider, Abstract 08/02/2025 External Device Data STL ABSTRACTION Provider, Abstract 08/01/2025 External Device Data STL ABSTRACTION Provider, Abstract 08/01/2025 External Device Data STL ABSTRACTION Provider, Abstract 07/31/2025 External Device Data STL ABSTRACTION Provider, Abstract 07/31/2025 External Device Data STL ABSTRACTION Provider, Abstract 07/30/2025 External Device Data STL ABSTRACTION Provider, Abstract 07/30/2025 External Device Data STL ABSTRACTION Provider, Abstract 07/29/2025 External Device Data STL ABSTRACTION Provider, Abstract 07/29/2025 External Device Data STL ABSTRACTION Provider, Abstract 07/28/2025 External Device Data STL ABSTRACTION Provider, Abstract 07/28/2025 External Device Data STL ABSTRACTION Provider, Abstract 07/27/2025 7:48 AM CDT - 07/27/2025 11:59 PM CDT Hospital En[facility] [address] [place] [address] Carlos Carney MD Discharge Disposition: Home or Self Care 07/27/2025 External Device Data STL ABSTRACTION Provider, Abstract 07/27/2025 External Device Data STL ABSTRACTION Provider, Abstract 07/27/2025 External Device Data STL ABSTRACTION Provider, Abstract 07/26/2025 External Device Data STL ABSTRACTION Provider, Abstract 07/26/2025 External Device Data STL ABSTRACTION Provider, Abstract 07/25/2025 External Device Data STL ABSTRACTION Provider, Abstract 07/25/2025 External Device Data STL ABSTRACTION Provider, Abstract 07/24/2025 External Device Data STL ABSTRACTION Provider, Abstract 07/24/2025 External Device Data STL ABSTRACTION Provider, Abstract 07/23/2025 Telephone [facility] [address] [place] [address] Lissa Pinedo RN Radiation Pneumonitis 07/23/2025 External Device Data STL ABSTRACTION Provider, Abstract 07/23/2025 External Device Data STL ABSTRACTION Provider, Abstract 07/22/2025 External Device Data STL ABSTRACTION Provider, Abstract 07/22/2025 External Device Data STL ABSTRACTION Provider, Abstract 07/22/2025 External Device Data STL ABSTRACTION Provider, Abstract 07/21/2025 External Device Data STL ABSTRACTION Provider, Abstract 07/21/2025 External Device Data STL ABSTRACTION Provider, Abstract 07/21/2025 External Device Data STL ABSTRACTION Provider, Abstract 07/21/2025 External Device Data STL ABSTRACTION Provider, Abstract 07/21/2025 Telephone [facility] [address] [facility] [address] [place] [address] Priya Simpson V., DO pain; Spasms 07/21/2025 External Device Data STL ABSTRACTION Provider, Abstract 07/21/2025 External Device Data STL ABSTRACTION Provider, Abstract 07/20/2025 External Device Data STL ABSTRACTION Provider, Abstract 07/20/2025 External Device Data STL ABSTRACTION Provider, Abstract 07/19/2025 11:56 AM CDT - 07/19/2025 11:59 PM CDT Hospital Encounter [facility] 3rd In [address] [facility] [address] [facility] [place] [address] Priya Simpson V., DO Discharge Disposition: Home or Self Care 07/19/2025 11:15 AM CDT Office Visit [facility] [address] [facility] [address] [place] [address] Priya Simpson V., DO Malignant neoplasm of middle lobe of right lung (CMS/HCC) (Primary Dx); Muscle spasms of neck; Encounter for antineoplastic chemotherapy and immunotherapy; Radiation pneumonitis 07/19/2025 7:00 AM CDT - 07/19/2025 11:59 PM CDT Hospital Encounter [facility] 2nd Fl [address] [place] [address] Priya Simpson V., DO Discharge Disposition: Home or Self Care 07/19/2025 External Device Data STL ABSTRACTION Provider, Abstract 07/19/2025 External Device Data STL ABSTRACTION Provider, Abstract 07/18/2025 External Device Data STL ABSTRACTION Provider, Abstract 07/18/2025 External Device Data STL ABSTRACTION Provider, Abstract 07/17/2025 External Device Data STL ABSTRACTION Provider, Abstract 07/17/2025 External Device Data STL ABSTRACTION Provider, Abstract 07/16/2025 External Device Data STL ABSTRACTION Provider, Abstract 07/16/2025 External Device Data STL ABSTRACTION Provider, Abstract 07/15/2025 9:25 AM CDT - 07/15/2025 11:59 PM CDT Hospital Encounter [facility] CT Scan [address] [place] [address] Linn Calhoun, SUMA Discharge Disposition: Home or Self Care 07/15/2025 External Device Data STL ABSTRACTION Provider, Abstract 07/15/2025 External Device Data STL ABSTRACTION Provider, Abstract 07/14/2025 External Device Data STL ABSTRACTION Provider, Abstract 07/14/2025 External Device Data STL ABSTRACTION Provider, Abstract 07/14/2025 External Device Data STL ABSTRACTION Provider, Abstract 07/13/2025 External Device Data STL ABSTRACTION Provider, Abstract 07/13/2025 [facility] Oncology and Hematology [facility] [address] [facility] [place] [address] Priya Simpson V., DO pain 07/13/2025 External Device Data STL ABSTRACTION Provider, Abstract 07/12/2025 External Device Data STL ABSTRACTION Provider, Abstract 07/11/2025 External Device Data STL ABSTRACTION Provider, Abstract 07/10/2025 External Device Data STL ABSTRACTION Provider, Abstract 07/09/2025 External Device Data STL ABSTRACTION Provider, Abstract 07/08/2025 External Device Data STL ABSTRACTION Provider, Abstract 07/08/2025 External Device Data STL ABSTRACTION Provider, Abstract 07/08/2025 External Device Data STL ABSTRACTION Provider, Abstract 07/08/2025 External Device Data STL ABSTRACTION Provider, Abstract 07/07/2025 External Device Data STL ABSTRACTION Provider, Abstract 07/07/2025 External Device Data STL ABSTRACTION Provider, Abstract 07/07/2025 External Device Data STL ABSTRACTION Provider, Abstract 07/07/2025 External Device Data STL ABSTRACTION Provider, Abstract 07/07/2025 External Device Data STL ABSTRACTION Provider, Abstract 07/07/2025 External Device Data STL ABSTRACTION Provider, Abstract 07/07/2025 External Device Data STL ABSTRACTION Provider, Abstract 07/07/2025 External Device Data STL ABSTRACTION Provider, Abstract 07/06/2025 External Device Data STL ABSTRACTION Provider, Abstract 07/06/2025 External Device Data STL ABSTRACTION Provider, Abstract 07/05/2025 External Device Data STL ABSTRACTION Provider, Abstract 07/05/2025 External Device Data STL ABSTRACTION Provider, Abstract 07/05/2025 External Device Data STL ABSTRACTION Provider, Abstract 07/05/2025 External Device Data STL ABSTRACTION Provider, Abstract 07/05/2025 External Device Data STL ABSTRACTION Provider, Abstract 07/05/2025 External Device Data STL ABSTRACTION Provider, Abstract 07/05/2025 External Device Data STL ABSTRACTION Provider, Abstract 07/05/2025 External Device Data STL ABSTRACTION Provider, Abstract 07/05/2025 External Device Data STL ABSTRACTION Provider, Abstract 07/05/2025 External Device Data STL ABSTRACTION Provider, Abstract 07/05/2025 External Device Data STL ABSTRACTION Provider, Abstract 07/05/2025 External Device Data STL ABSTRACTION Provider, Abstract 07/05/2025 External Device Data STL ABSTRACTION Provider, Abstract 07/05/2025 External Device Data STL ABSTRACTION Provider, Abstract 07/05/2025 External Device Data STL ABSTRACTION Provider, Abstract 07/05/2025 External Device Data STL ABSTRACTION Provider, Abstract 07/05/2025 External Device Data STL ABSTRACTION Provider, Abstract 07/05/2025 External Device Data STL ABSTRACTION Provider, Abstract 07/05/2025 External Device Data STL ABSTRACTION Provider, Abstract 07/05/2025 External Device Data STL ABSTRACTION Provider, Abstract 07/05/2025 External Device Data STL ABSTRACTION Provider, Abstract 07/04/2025 External Device Data STL ABSTRACTION Provider, Abstract 07/03/2025 External Device Data STL ABSTRACTION Provider, Abstract 07/02/2025 External Device Data STL ABSTRACTION Provider, Abstract 07/01/2025 External Device Data STL ABSTRACTION Provider, Abstract 06/30/2025 External Device Data STL ABSTRACTION Provider, Abstract 06/30/2025 External Device Data STL ABSTRACTION Provider, Abstract 06/29/2025 External Device Data STL ABSTRACTION Provider, Abstract 06/28/2025 External Device Data STL ABSTRACTION Provider, Abstract 06/27/2025 External Device Data STL ABSTRACTION Provider, Abstract 06/26/2025 External Device Data STL ABSTRACTION Provider, Abstract 06/25/2025 External Device Data STL ABSTRACTION Provider, Abstract 06/24/2025 External Device Data STL ABSTRACTION Provider, Abstract 06/23/2025 External Device Data STL ABSTRACTION Provider, Abstract 06/22/2025 External Device Data STL ABSTRACTION Provider, Abstract 06/21/2025 10:30 AM CDT - 06/21/2025 11:59 PM CDT Hospital Encounter [facility] 3rd In [address] [address] [place] [address] Priya Simpson V., DO Discharge Disposition: Home or Self Care 06/21/2025 10:00 AM CDT Office Visit [facility] Oncology and Hematology [facility] [address] [facility] [place] [address] Priya Simpson V., Linn Cordova PA-C Malignant neoplasm of middle lobe of right lung (CMS/HCC) (Primary Dx); Lung mass; Treatment plan provided 06/21/2025 9:41 AM CDT - 06/21/2025 11:59 PM CDT Hospital Encounter [facility] 2nd In [address] [place] [place] [address] Priya Simpson V., DO Discharge Disposition: Home or Self Care 06/21/2025 External Device Data STL ABSTRACTION Provider, Abstract 06/20/2025 External Device Data STL ABSTRACTION Provider, Abstract 06/19/2025 External Device Data STL ABSTRACTION Provider, Abstract 06/18/2025 External Device Data STL ABSTRACTION Provider, Abstract 06/17/2025 External Device Data STL ABSTRACTION Provider, Abstract 06/16/2025 External Device Data STL ABSTRACTION Provider, Abstract 06/15/2025 External Device Data STL ABSTRACTION Provider, Abstract 06/14/2025 External Device Data STL ABSTRACTION Provider, Abstract 06/13/2025 External Device Data STL ABSTRACTION Provider, Abstract 06/12/2025 External Device Data STL ABSTRACTION Provider, Abstract 06/11/2025 External Device Data STL ABSTRACTION Provider, Abstract 06/10/2025 External Device Data STL ABSTRACTION Provider, Abstract 06/09/2025 External Device Data STL ABSTRACTION Provider, Abstract 06/09/2025 External Device Data STL ABSTRACTION Provider, Abstract 06/08/2025 External Device Data STL ABSTRACTION Provider, Abstract 06/08/2025 External Device Data STL ABSTRACTION Provider, Abstract 06/07/2025 External Device Data STL ABSTRACTION Provider, Abstract 06/06/2025 External Device Data STL ABSTRACTION Provider, Abstract 06/05/2025 External Device Data STL ABSTRACTION Provider, Abstract 06/04/2025 External Device Data STL ABSTRACTION Provider, Abstract 06/03/2025 External Device Data STL ABSTRACTION Provider, Abstract 06/02/2025 External Device Data STL ABSTRACTION Provider, Abstract 06/01/2025 External Device Data STL ABSTRACTION Provider, Abstract 05/31/2025 External Device Data STL ABSTRACTION Provider, Abstract 05/30/2025 External Device Data STL ABSTRACTION Provider, Abstract 05/29/2025 External Device Data STL ABSTRACTION Provider, Abstract 05/28/2025 External Device Data STL ABSTRACTION Provider, Abstract 05/27/2025 Chart Note [facility] Patient Navigation [address] [place] [address] Missy Yee, [place] Nurse Navigation (Follow up) 05/27/2025 External Device Data STL ABSTRACTION Provider, Abstract 05/26/2025 External Device Data STL ABSTRACTION Provider, Abstract 05/25/2025 Telephone [facility] Oncology and Hematology - [facility] [address] [facility] [address] [place] [address] Priya Simspon V., DO status 05/25/2025 External Device Data STL ABSTRACTION Provider, Abstract 05/24/2025 10:30 AM CDT - 05/24/2025 11:59 PM CDT Hospital En[facility] [address] [facility] [address] [place] [address] Priya Simpson V., DO Discharge Disposition: Home or Self Care 05/24/2025 10:15 AM CDT - 05/24/2025 11:59 PM CDT Hospital Encounter [facility] [address] [place] [address] Priya Simpson V., DO Discharge Disposition: Home or Self Care 05/24/2025 10:00 AM CDT Office Visit [facility] Oncology and Hematology [facility] [address] [address] [place] [address] Priya Simpson V., DO Malignant neoplasm of middle lobe of right lung (CMS/HCC) 05/24/2025 External Device Data STL ABSTRACTION Provider, Abstract 05/23/2025 External Device Data STL ABSTRACTION Provider, Abstract 05/22/2025 External Device Data STL ABSTRACTION Provider, Abstract 05/21/2025 External Device Data STL ABSTRACTION Provider, Abstract 05/20/2025 External Device Data STL ABSTRACTION Provider, Abstract 05/19/2025 External Device Data STL ABSTRACTION Provider, Abstract 05/18/2025 External Device Data STL ABSTRACTION Provider, Abstract 05/18/2025 External Device Data STL ABSTRACTION Provider, Abstract 05/17/2025 8:42 AM CDT - 05/17/2025 11:59 PM CDT Hospital Encounter [facility] CT Scan [address] [place] [address] Linn Calhoun PA-C Discharge Disposition: Home or Self Care 05/17/2025 External Device Data STL ABSTRACTION Provider, Abstract 05/16/2025 External Device Data STL ABSTRACTION Provider, Abstract 05/15/2025 External Device Data STL ABSTRACTION Provider, Abstract 05/14/2025 External Device Data STL ABSTRACTION Provider, Abstract 05/13/2025 External Device Data STL ABSTRACTION Provider, Abstract 05/12/2025 External Device Data STL ABSTRACTION Provider, Abstract 05/11/2025 External Device Data STL ABSTRACTION Provider, Abstract 05/10/2025 External Device Data STL ABSTRACTION Provider, Abstract 05/09/2025 External Device Data STL ABSTRACTION Provider, Abstract 05/08/2025 External Device Data STL ABSTRACTION Provider, Abstract 05/07/2025 External Device Data STL ABSTRACTION Provider, Abstract 05/06/2025 External Device Data STL ABSTRACTION Provider, Abstract 05/05/2025 External Device Data STL ABSTRACTION Provider, Abstract from Last 3 Months Family History Medical History Relation Name Comments No Known Problems Brother Diabetes Child 1 No Known Problems Child 2 No Known Problems Child 3 No Known Problems Father Brain Aneurysm Mother No Known Problems Sister 1 No Known Problems Sister 2 Relation Name Status Comments Brother Child 1 Alive Child 2 Alive Child 3 Alive Father Mother Sister 1 Alive Sister 2 Alive Social History Tobacco Use Types Packs/Day Years Used Date Smoking Tobacco: Former Cigarettes Q uit: 1967 Smokeless Tobacco: Never Tobacco Cessation:Counseling Given: Not Answered Alcohol Use Standard Drinks/Week Comments Yes 0 (1 standard drink = 0.6 oz pur e alcohol) Occasionally Feeling Safe Answer Date Recorded Are you in a relationship wi th someone who hurts you emotionally and/or physically? 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 Gender Identity Not on file Sexual Orientation Not on file Last Filed Vital Signs Vital Sign Reading Time Taken Comments Blood Pressure 136/80 07/27/2025 8:17 AM CDT Pulse 83 07/27/2025 8:17 AM CDT Temperature 35.9 C (96.7 F) 07/27/2025 8:17 AM CDT Respiratory Rate 18 06/21/2025 10:26 AM CDT Oxygen Saturation 96% 07/27/2025 8:17 AM CDT Inhaled Oxygen Concentration - - Weight 61.2 kg (135 lb) 07/27/2025 8:16 AM CDT Height 154.9 cm (5' 1) 07/27/2025 8:16 AM CDT Body Mass Index 25.51 07/27/2025 8:16 AM CDT Plan of Treatment Upcoming Encounters Date Type Department Care Team (Late st Contact Info) Description 08/16/2025 9:30 AM CDT Office Visit [facility] Oncology and Hematology [facility] [address] [place] [address] Priya Simpson DO [address] [place] [address] 08/16/2025 10:30 AM CDT Appointment [facility] 3rd Fl [address] [place] [address] Roni Simpsongiles Webb., DO [address] [place] [address] 11/09/2025 8:40 AM HEAD COACH Appointment [facility] Radiation Therapy [address] [place] [address] Pee Matthews MD [address] [facility] [id number] [place] [address] Health Maintenance Due Date Last Done Comments DTAP/TDAP/TD VACCINES (1 - Tdap) 1970 PNEUMOCOCCAL VACCINE 50+ YEARS (1 of 2 - PCV) 03/15/19 70 ZOSTER VACCINE (1 of 2) 1970 BREAST CANCER SCREENING 1991 COLORECTAL SCREENING 1996 Colorectal Cancer Screening 1996 FIT-DNA Q 3 years 1996 FIT/FOBT Q 1 year 1996 Flex Sig/CT Colonography Q 5 years 1996 RSV VACCINE (60+ or ) (1 - Risk 60-74 years 1-dose series) 2011 OSTEOPOROSIS SCREENING 2016 INFLUENZA VACCINE (#1) 2025 Medical Devices Implanted Type Area Agricultural Research Technologist Device Identifier Shelf Expiration Date Model / Serial / Lot Port-03/19/2025 Implanted:Qty: 1 on 03/19/2025 by Garry Dixon MD Right: Chest Wall CR BARD- ACCESS SYS 01/22/2026 [id number] / / [id number] Description:ISP port implant ed on 03/19/[address] Dixon Procedures Procedure Name Priority Date/Time Associated Diagnosis Comments COMPREHENSIVE METABOLIC PANEL Stat 07/19/2025 11:22 AM CDT Malignant neoplasm of middle lobe of right lung (CMS/HCC) CBC WITH DIFFERENTIAL Stat 07/19/2025 11:22 AM CDT Malignant neoplasm of middle lobe of right lung (CMS/HCC) TSH REFLEXIVE Routine 07/19/2025 11:22 AM CDT Malignant neoplasm of middle lobe of right lung (CMS/HCC) CT CHEST W CONTRAST Routine 07/15/2025 1 0:11 AM CDT Malignant neoplasm of middle lobe of right lung (CMS/HCC) Lung mass Treatment plan provided COMPREHENSIVE METABOLIC PANEL Stat 06/21/2025 10:13 AM CDT Malignant neoplasm of middle lobe of right lung (CMS/HCC) CBC WITH DIFFERENTIAL Stat 06/21/2025 10:13 AM CDT Malignant neoplasm of middle lobe of right lung (CMS/HCC) TSH REFLEXIVE Routine 06/21/2025 10:13 AM CDT Malignant neoplasm of middle lobe of right lung (CMS/HCC) COMPREHENSIVE METABOLIC PANEL Stat 05/24/2025 10:32 AM CDT Malignant neoplasm of middle lobe of right lung (CMS/HCC) CBC WITH DIFFERENTIAL Stat 05/24/2025 10:32 AM CDT Malignant neoplasm of middle lobe of right lung (CMS/HCC) TSH REFLEXIVE Routine 05/24/2025 10:32 AM CDT Malignant neoplasm of middle lobe of right lung (CMS/HCC) CT CHEST WO CONTRAST Routine 05/17/2025 9:00 AM CDT Malignant neoplasm of middle lobe of right lung (CMS/HCC) Encounter for chemotherapy management from Last 3 Months Results * (ABNORMAL) TSH REFLEXIVE (07/19/2025 11:22 AM CDT) Only the most recent of3 resultswithin the time period is included. TSH 0.11(L) 0.40 - 4.50 mIU/L [facility] T4 FREE 1.4 0.8 - 1.8 ng/dL [facility] Comment: [facility] [address] [address] [place] [address] Kal Wiley Blood 07/19/2025 11:2 2 AM CDT 07/19/2025 12:54 PM CDT Priya Simpson DO CHEMISTRY ORDERABLES Final Result [facility] [phone] [place] [address] [address] [place] [address] * (ABNORMAL) CBC WITH DIFFERENTIAL (07/19/2025 11:22 AM CDT) Only the most recent of3 resultswithin the time period is included. WBC 10.6(H) 4.0 - 9.8 K/uL 07/19/2025 11:37 AM CDT [facility] RBC 3.91 3.90 - 4.90 M/uL 07/19/2025 11:37 AM CDT [facility] HEMOGLOBIN 12.6 11.8 - 14.8 g/dL 07/19/2025 11:37 AM CDT [facility] HEMATOCRIT 37.0 35.5 - 44.0 % 07/19/2025 11:37 AM CDT [facility] MCV 94.6 82.0 - 99.0 fL 07/19/2025 11:37 AM CDT [facility] MCH 32.2 27.2 - 32.6 pg 07/19/2025 11:37 AM CDT [facility] MCHC 34.1 31.5 - 35.5 g/dL 07/19/2025 11:37 AM CDT [facility] RDW 11.7 11.5 - 14.5 % 07/19/2025 11:37 AM CDT [facility] RDW-STDEV 40.0 37.1 - 48.7 fL 07/19/2025 11:37 AM CDT [facility] - . [facility] PLATELETS 299 140 - 350 K/uL 07/19/2025 11:37 AM T [facility] - . [facility] MPV 9.3 9.3 - 12.4 fL 07/19/2025 11:37 AM T [facility] - . [facility] NEUTROPHILS 80 % 07/19/2025 11:37 AM T [facility] - . [place] LYMPHOCYTES 7 % 07/19/2025 11:37 AM CDT [employer] [facility] - . [place] MONOCYTES 9 % 07/19/2025 11:37 AM CDT [facility] [place] EOSINOPHILS 3 % 07/19/2025 11:37 AM T [facility] - . [place] BASOPHILS 1 % 07/19/2025 11:37 AM [facility]ORATORY SERVICES - . [facility] IMMATURE GRANULOCYTES 1 % 07/19/2025 11:37 AM [facility]ORATORY SERVICES - . [place] Comment:IG (Immature Granulo cyte) count includes Metamyelocytes, Myelocytes, and Promyelocytes NEUTROPHIL ABSOLUTE 8.51(H) 1.90 - 7.00 K/uL 07/19/2025 11:37 AM T [facility] - . [facility] LYMPHOCYTE ABSOLUTE 0.72 0.70 - 4.50 K/uL 07/19/2025 11:37 AM [facility]ORATORY SERVICES - [facility] MONOCYTE ABSOLUTE 1.00 0.10 - 1.30 K/uL 07/19/2025 11:37 AM [facility] - . [facility] EOSINOPHIL ABSOLUTE 0.26 0.00 - 0.70 K/uL 07/19/2025 11:37 AM [facility] - . [facility] BASOPHILS ABSOLUTE 0.07 0.00 - 0.20 K/uL 07/19/2025 11:37 AM [facility] - . [facility] IMMATURE GRANULOCYTES ABSOLUTE 0.05(H) 0.00 - 0.03 K/uL 07/19/2025 11:37 AM [facility] - . [facility] Blood Collection / Unknown 07/19/2025 11:22 AM CDT 07/19/2025 11:29 AM CDT us Priya Simpson DO HEMATOLOGY ORDERABLES Final Result [facility] RYANNE# [id number] [address] [place] [address] * (ABNORMAL) COMPREHENSIVE METABOLIC PANEL (07/19/2025 11:22 AM CDT) Only the most recent of3 resultswithin the time period is included. [facility] SODIUM 137 136 - 145 mmol/L 07/19/2025 12:14 PM CDT [facility] - [facility] POTASSIUM 4.2 3.5 - 5.0 mmol/L 07/19/2025 12:14 PM CDT [facility] CHLORIDE 100 98 - 107 mmol/L 07/19/2025 12:14 PM CDT [facility] CO2 26 22 - 29 mmol/L 07/19/2025 12:14 PM CDT [facility] CALCIUM 9.9 8.6 - 10.2 mg/dL 07/19/2025 12:14 PM CDT [facility] - . [facility] BUN 10 8 - 23 mg/dL 07/19/2025 12:14 PM T [facility] CREATININE 0.60 0.51 - 0.95 mg/dL 07/19/2025 12:14 PM T [facility] Comment:The GFR result is no t clinically significant on patients <18 or >70 years of age. GLUCOSE 98 74 - 99 mg/dL 07/19/2025 12:14 PM CDT [facility] - . [facility] TOTAL PROTEIN 6.6(L) 6.7 - 8.6 g/dL 07/19/2025 12:14 PM CD[address] [facility] ALBUMIN 3.9 3.5 - 5.2 g/dL 07/19/2025 12:14 PM CD[address] [facility] BILIRUBIN TOTAL 0.2 0.0 - 1.1 mg/dL 07/19/2025 12:14 PM [facility] ALKALINE PHOSPHATASE 94 35 - 104 U/L 07/19/2025 12:14 PM [facility] AST 26 <33 U/L 07/19/2025 12:14 PM [facility] ALT 15 <34 U/L 07/19/2025 12:14 PM [facility] GFR >60 mL/min/1.7 3 sq meter 07/19/2025 12:14 PM [facility] Comment:eGFR calculated with 2020 CKD-EPI equation. Vegetarian diet, extremely high or low muscle mass, and may affect results. Cystatin C with Glomerular Filtration Rate is a suitable alternative for these patients. ANION GAP 11 8 - 16 mmol/L 07/19/2025 12:14 PM [facility] Blood Collection / Unknown 07/19/2025 11:22 AM CDT 07/19/2025 11:46 AM CDT Narrative [facility] - 07/19/2025 12:14 PM CDT Samples containing indocyanine green cause interferences on Total and/or Direct Bilirubin and must not be measured. Priya Simpson DO CHEMISTRY ORDERABLES Final Result [facility]# [id number] [address] [place] [address] * CT CHEST W CONTRAST (07/15/2025 10:11 AM CDT) Anatomical Region Laterality Modality Chest Computed Tomogra phy 07/15/2025 10:0 2 AM CDT Impressions 07/15/2025 10:48 AM CDT IMPRESSION: 1. Interval decreased size of the dominant right middle lobe mass with bronchial obstruction. New airspace disease in the right lower and right upper lobe favored to be radiation pneumonitis. Attention on follow-up recommended. 2. Bilateral upper lobe nodular airspace opacities are stable. The examination was performed with the adjustment of mA according to the patient size and/or the use of Iterative Reconstruction Technique. DICTATION LOCATION: Location 1 - [facility] 07/15/2025 10:48 AM CDT EXAM: CT CHEST WITH INTRAVENOUS CONTRAST DATE: 07/15/2025 10:11 AM HISTORY: Metastatic non-small cell lung cancer, assess treatment response. TECHNIQUE: CT of the above listed region was performed after the patient received IOPAMIDOL 61 % INTRAVENOUS SOLUTION (MULTI-DOSE BULK PACK) Given:70 mL. Oral contrast was not administered. COMPARISONS: 05/17/2025 FINDINGS: Left apical 2 cm masslike opacity is unchanged. Again seen is the vague right middle lobe mass obstructing the bronchus with postobstructive atelectasis measuring 2.5 cm, previously 3.0 cm. Probable post radiation changes are seen in the right lower lobe and right upper lobe. 1.6 cm nodule in the posterior right upper lobe is unchanged. No new or enlarging pulmonary nodules. Port central venous catheter tip terminates at the superior cavoatrial junction. Calcific coronary disease is present. Limited views of the upper abdomen are unremarkable. There is no pathologic adenopathy in the chest. Vasculature is otherwise unremarkable. No suspicious lytic or blastic lesions are identified. Procedure Note Sergio Townsend MD - 07/15/2025 EXAM: CT CHEST WITH INTRAVENOUS CONTRAST DATE: 07/15/2025 10:11 AM HISTORY: Metastatic non-small cell lung cancer, assess treatment response. TECHNIQUE: CT of the above listed region was performed after the patient received IOPAMIDOL 61 % INTRAVENOUS SOLUTION (MULTI-DOSE BULK PACK) Given:70 mL. Oral contrast was not administered. COMPARISONS: 05/17/2025 FINDINGS: Left apical 2 cm masslike opacity is unchanged. Again seen is the vague right middle lobe mass obstructing the bronchus with postobstructive atelectasis measuring 2.5 cm, previously 3.0 cm. Probable post radiation changes are seen in the right lower lobe and right upper lobe. 1.6 cm nodule in the posterior right upper lobe is unchanged. No new or enlarging pulmonary nodules. Port central venous catheter tip terminates at the superior cavoatrial junction. Calcific coronary disease is present. Limited views of the upper abdomen are unremarkable. There is no pathologic adenopathy in the chest. Vasculature is otherwise unremarkable. No suspicious lytic or blastic lesions are identified. IMPRESSION: 1. Interval decreased size of the dominant right middle lobe mass with bronchial obstruction. New airspace disease in the right lower and right upper lobe favored to be radiation pneumonitis. Attention on follow-up recommended. 2. Bilateral upper lobe nodular airspace opacities are stable. The examination was performed with the adjustment of mA according to the patient size and/or the use of Iterative Reconstruction Technique. DICTATION LOCATION: Location [address] [place] [address] us Linn Moreno Unique [facility]ree CT ORDERABLES Rosy mcqueen Result * CT CHEST WO CONTRAST (05/17/2025 9:00 AM CDT) Anatomical Region Laterality Modality Chest Computed Tomogra phy 05/17/2025 9:12 AM CDT Impressions 05/19/2025 7:49 AM CDT IMPRESSION: 1. Right middle lobe collapse and right middle lobe mass as seen on prior PET/CT is difficult to visualize due to the atelectasis. Configuration however is similar to the prior study. A pleural-based area of nodularity in the medial right upper lobe has mildly decreased in size compared to the prior study. 2. Other scattered bilateral pulmonary opacities and areas of nodularity do not appear substantially changed as detailed above. Decreased mediastinal enlargement. 3. Aortic and coronary artery calcifications. 4. Diffuse heterogeneity of the thyroid gland likely containing numerous nodules which could be assessed by means of ultrasound. 5. Stable probable cyst or hemangioma within the left lobe of the liver. DICTATION LOCATION: Location 4 Narrative 05/19/2025 7:[address] CHEST WITHOUT CONTRAST AND RECONSTRUCTIONS DATE: 05/17/2025 9:00 AM. CLINICAL INFORMATION: Malignant neoplasm of right middle lobe. COMPARISON: CT from an outside institution dating 12/21/2024. PET CT from an outside institution 01/21/2025. PROCEDURE: Contiguous unenhanced axial sections of the chest are obtained, and are reformatted in the coronal and sagittal planes. The examination was performed with the adjustment of mA according to the patient size and/or the use of Iterative Reconstruction Technique. FINDINGS: HEART/VESSELS: Mild cardiomegaly. No pericardial effusion. Mild thoracic aortic calcifications without aneurysm. CORONARY ARTERIES: Multivessel coronary artery calcifications. MEDIASTINUM AND STUART: Scattered subcentimeter mediastinal lymph nodes. Assessment positions with IV contrast. LUNGS: Biapical areas of pleural thickening and scarring. Nodular area abutting the pleural surface in the medial aspect of the lobe on image 14 of series 2 measures 1.9 x 1.6 cm (previously 2.5 x 2.0 cm). Focal confluent opacities in the left upper lobe appear similar. Atelectasis of the right middle lobe appears unchanged. Right middle lobe mass as seen on the prior PET/CT is completely obscured by the atelectasis and cannot be definitively measured. Opacities seen just above the right middle lobe atelectasis, image 206 of series 2 measuring 1.5 x 2.6 cm (previously 1.6 x 2.7 cm), appearing somewhat more confluent hypodensities examination. Patchy nodular opacities within the peripheral aspect of the right upper lobe on image 92 measuring 0.8 x 1.1 cm appear similar. Local confluent opacities in the right upper lobe along the major fissure measuring 1.3 x 1.9 cm appear similar. An adjacent area of groundglass opacity in the right upper lobe posteriorly also appears similar. Nodule within the right lower lobe on image 183 at 4 mm appears similar. PLEURA: No pleural effusion or pneumothorax. CHEST WALL AND LOWER NECK: Port-A-Cath within the right chest wall tissues, distal tip ending in the right atrium. Diffuse heterogeneity of the thyroid gland containing multiple nodules. No axillary lymphadenopathy. UPPER ABDOMEN: Low-density lesion within hepatic segment 2 appears similar measuring up to 1 cm. BONES: Mild spondylosis in the spine. Increasing mild subchondral sclerosis and cyst formation within the superior endplate of T12 on the right side which is presumably degenerative. No visible destructive osseous lesions. Procedure Note Hamlet Gonzalez DO - 05/19/2025 CT CHEST WITHOUT CONTRAST AND RECONSTRUCTIONS DATE: 05/17/2025 9:00 AM. CLINICAL INFORMATION: Malignant neoplasm of right middle lobe. COMPARISON: CT from an outside institution dating 12/21/2024. PET CT from an outside institution 01/21/2025. PROCEDURE: Contiguous unenhanced axial sections of the chest are obtained, and are reformatted in the coronal and sagittal planes. The examination was performed with the adjustment of mA according to the patient size and/or the use of Iterative Reconstruction Technique. FINDINGS: HEART/VESSELS: Mild cardiomegaly. No pericardial effusion. Mild thoracic aortic calcifications without aneurysm. CORONARY ARTERIES: Multivessel coronary artery calcifications. MEDIASTINUM AND STUART: Scattered subcentimeter mediastinal lymph nodes. Assessment positions with IV contrast. LUNGS: Biapical areas of pleural thickening and scarring. Nodular area abutting the pleural surface in the medial aspect of the lobe on image 14 of series 2 measures 1.9 x 1.6 cm (previously 2.5 x 2.0 cm). Focal confluent opacities in the left upper lobe appear similar. Atelectasis of the right middle lobe appears unchanged. Right middle lobe mass as seen on the prior PET/CT is completely obscured by the atelectasis and cannot be definitively measured. Opacities seen just above the right middle lobe atelectasis, image 206 of series 2 measuring 1.5 x 2.6 cm (previously 1.6 x 2.7 cm), appearing somewhat more confluent hypodensities examination. Patchy nodular opacities within the peripheral aspect of the right upper lobe on image 92 measuring 0.8 x 1.1 cm appear similar. Local confluent opacities in the right upper lobe along the major fissure measuring 1.3 x 1.9 cm appear similar. An adjacent area of groundglass opacity in the right upper lobe posteriorly also appears similar. Nodule within the right lower lobe on image 183 at 4 mm appears similar. PLEURA: No pleural effusion or pneumothorax. CHEST WALL AND LOWER NECK: Port-A-Cath within the right chest wall tissues, distal tip ending in the right atrium. Diffuse heterogeneity of the thyroid gland containing multiple nodules. No axillary lymphadenopathy. UPPER ABDOMEN: Low-density lesion within hepatic segment 2 appears similar measuring up to 1 cm. BONES: Mild spondylosis in the spine. Increasing mild subchondral sclerosis and cyst formation within the superior endplate of T12 on the right side which is presumably degenerative. No visible destructive osseous lesions. IMPRESSION: 1. Right middle lobe collapse and right middle lobe mass as seen on prior PET/CT is difficult to visualize due to the atelectasis. Configuration however is similar to the prior study. A pleural-based area of nodularity in the medial right upper lobe has mildly decreased in size compared to the prior study. 2. Other scattered bilateral pulmonary opacities and areas of nodularity do not appear substantially changed as detailed above. Decreased mediastinal enlargement. 3. Aortic and coronary artery calcifications. 4. Diffuse heterogeneity of the thyroid gland likely containing numerous nodules which could be assessed by means of ultrasound. 5. Stable probable cyst or hemangioma within the left lobe of the liver. DICTATION LOCATION: Location 4 Linn Fabian Josh Unique [place] CT ORDERABLES Rosy l Result from Last 3 Months Insurance [facility] [employer] Medicare Part D Care Teams Psych Coordinator Relationship Specialty Start Date End Date Bon Gonzalez MD [address] [place] [address] [address] [place] [address] PCP - General Family Practice 01/29/25
[2025-08-05 10:15] LABS: Cholesterol 183 mg/dL (0-200); HDL Direct 50 mg/dL; Triglycerides 166 mg/dL (<150)
[2025-08-05 10:41] LABS: Add Urine Microscopic? YES; Appearance Urine Clear (Clear); Glucose Urine UA Negative (Negative); Leukocyte Esterase Ur 1+ LEU/UL (Negative); Need Manual Microscopic Reviewed; Nitrate Urine Negative (Negative); Non Pathogenic Casts 0-2; Specific Grav Ur 1.010 (1.001-1.035)
== END 2025-08-05 09:27 | disposition home or self-care (01) ==
PROVIDERS: PCP Family Medicine; Visit Provider Family Medicine
DX: Z13.6 Encounter for screening for cardiovascular disorders (principal)
CPT/HCPCS: 36415; 80061; 81001